=== PATIENT | female | born 1960 | race African-American/Black ===

== ENCOUNTER 2016-06-01 09:30 | Observation (INO) | payer OTHER ==
[2016-06-01 09:56] VITALS: BMI 29.8
[2016-06-01] MEDS ORDERED: SODIUM CHLORIDE 1,000 ML IV ONE (10:11)
[2016-06-01 10:23] LABS: BASOPHIL 0.6 % (0-2.0); EOSINOPHIL 0.6 % (0-4.5); MCH 32.2 pg (25.7-33.7); MEAN CELL VOLUME 94.8 fl (80-96); MEAN PLT VOLUME 7.6 fl (7.5-11.1); NEUTROPHILS 78.3 % (42.8-82.8); PLATELET COUNT 236 K/MM3 (134-434); WHITE BLOOD COUNT 9.8 K/mm3 (4.0-10.0)
--- NOTE | 2016-06-01 10:27 | PDOC ---
[id number] Timing/Duration: other (this am) Associated Symptoms: reports: nausea/vomiting, weakness. denies: chest pain, cough, fever/chills, headaches, shortness of breath <Patricia Miles - Last Filed: 06/01/16 13:07> <Luis Kong - Last Filed: 06/06/16 07:55> - General Chief Complaint: Syncope/Near Syncope Stated Complaint: WEAKNESS Time Seen by Provider: 06/01/16 09:41 Past History - Past Medical History Anemia: No Asthma: No Cancer: No Cardiac Disorders: No CVA: No COPD: No CHF: No Dementia: No Diabetes: No GI Disorders: No Disorders: No HTN: No Hypercholesterolemia: No Liver Disease: No Psychiatric Problems: Yes (DEPRESSION) Seizures: No Thyroid Disease: No - Psycho/Social/Smoking Cessation Hx Suicidal Ideation: Yes (HAS THOUGHT ABOUT IT IN THE PAST ") Smoking History: Current every day smoker Have you smoked in the past 12 months: Yes Number of Cigarettes Smoked Daily: 6 If you are a former smoker, when did you quit?: ABOUT 5 YRS AGO Information on smoking cessation initiated: Yes 'Breaking Loose' booklet given: 06/01/16 Hx Alcohol Use: No Drug/Substance Use Hx: No Substance Use Type: None Hx Substance Use Treatment: No <Patricia Miles - Last Filed: 06/01/16 13:07> <Luis Kong - Last Filed: 06/06/16 07:55> - Past Medical History Allergies/Adverse Reactions: Allergies Allergy/AdvReac Type Severity Reaction Status Date / Time No Known Drug Allergies Allergy Verified 06/01/16 09:42 Home Medications: Ambulatory Orders Aripiprazole [Abilify -] 2 mg PO DAILY 06/25/13 Diazepam [Valium -] 10 mg PO TID 06/25/13 Aspirin [ASA -] 81 mg PO DAILY #30 tab.chew 12/17/15 Atorvastatin Ca [Lipitor] 10 mg PO HS #30 tablet 12/17/15 Primidone [Mysoline -] 250 mg PO BID 06/01/16 Review of Systems - Review of Systems Constitutional: Yes: Weakness. No: Chills, Fever HEENTM: No: Blurred Vision Respiratory: No: Cough, Shortness of Breath Cardiac (ROS): No: Chest Pain ABD/GI: Yes: Nausea. No: Diarrhea, Vomiting : No: Dysuria Musculoskeletal: No: Back Pain, Neck Pain Neurological: Yes: Weakness, Dizziness. No: Headache, Seizure <Patricia Miles - Last Filed: 06/01/16 13:07> *Physical Exam - Vital Signs Last Vital Signs Temp Pulse Resp BP Pulse Ox 98.2 F 84 18 105/76 97 06/01/16 09:43 06/01/16 09:43 06/01/16 09:43 06/01/16 09:43 06/01/16 09:43 - Physical Exam Comments: 06/01/16 10:36 Pt lying on stretcher, alert w/ LUE tremor (chronic per pt) General Appearance: Yes: Appropriately Dressed. No: Apparent Distress HEENT: positive: Normal Voice Neck: positive: Supple Respiratory/Chest: positive: Lungs Clear, Normal Breath Sounds. negative: Respiratory Distress Cardiovascular: positive: Regular Rate, S1, S2 Gastrointestinal/Abdominal: positive: Soft. negative: Tender Extremity: positive: Normal Inspection Integumentary: positive: Dry, Warm Neurologic: positive: Fully Oriented, Alert, Normal Mood/Affect (affect, strength appears intact but unable to peform finger to nose of heel to leary, no drift, declines ambulation at this time). negative: Facial Droop <Patricia Miles Last Filed: 06/01/16 13:07> - Vital Signs Last Vital Signs Temp Pulse Resp BP Pulse Ox 97.9 F 105 H 18 102/61 96 06/02/16 14:00 06/02/16 14:00 06/02/16 14:00 06/02/16 14:00 06/02/16 09:00 <Luis Kong - Last Filed: 06/06/16 07:55> Heart Score/ECG Review - ECG Intrepretation Comment:: 06/01/16 11:14 Twelve-lead EKG was performed and reviewed by me. There is normal sinus rhythm with a normal rate. The axis is normal. The intervals are normal. There are no ST or T wave abnormalities. Impression: Normal twelve-lead EKG <Patricia Miles Last Filed: 06/01/16 13:07> ED Treatment Course - LABORATORY CBC & Chemistry Diagram: 06/01/16 10:00 06/01/16 10:00 <Patricia Miles - Last Filed: 06/01/16 13:07> - LABORATORY CBC & Chemistry Diagram: 06/02/16 05:35 06/02/16 05:35 - ADDITIONAL ORDERS Additional order review: 06/01/16 10:00 RBC 4.11 MCV 94.8 MCHC 34.0 RDW 14.0 MPV 7.6 D Neutrophils % 78.3 D Lymphocytes % 16.0 D Monocytes % 4.5 Eosinophils % 0.6 D Basophils % 0.6 - RADIOLOGY Radiology Studies Ordered: Category Date Time Status CHEST X-RAY PORTABLE* [RAD] Stat Radiology 06/01/16 10:11 Completed - Medications Given in the ED: ED Medications Discontinued Medications Generic Name Dose Route Start Last Admin Trade Name Kathie PRN Reason Stop Dose Admin Aspirin 81 mg 06/02/16 10:00 06/02/16 09:14 Asa - PO 81 mg DAILY JEM Administration Atorvastatin Calcium 10 mg 06/01/16 22:00 06/01/16 21:22 Lipitor - PO 10 mg HS JEM Administration Sodium Chloride 1,000 mls @ 1,000 mls/hr 06/01/16 10:11 06/01/16 10:45 Normal Saline - IV 06/01/16 11:10 1,000 mls/hr .Q1H ONE Administration Primidone 250 mg 06/01/16 22:00 06/01/16 21:22 Mysoline - PO 250 mg BID JEM Administration Primidone 250 mg 06/01/16 22:00 06/01/16 22:43 Mysoline - PO Not Given HS JEM <Luis Kong - Last Filed: 06/06/16 07:55> Medical Decision Making - Medical Decision Making 06/01/16 10:25 56-year-old female, h/o anxiety, depression, tremor, brought in by EMS after witnessed syncope. Patient states when she awoke this morning, felt generally weak and while outdoors waiting for her friend, she became lightheaded and passed out, states bystander caught her and denies hitting head. No seizure activity. Continues to feel weak at this time. Also complaining of nausea, no vomiting, headache, blurred vision, slurred speech or focal weakness at this time. Denies chest pain or shortness of breath. Patient states she's had similar syncopal episodes in the past and that at some point was seen by Dr Godwin of neuro w/ no clear dx. Of note, pt has had multipel ED visits for weakness and was admitted for same 12/12 when pt has also c/o left-sided weakness at that time. Had extensive neuro and cardiology workup with no clear diagnosis. Was found to have B-12 of over 7000 at that time and told to stop also supplements which patient has done see exam Weakness w/ syncope Recurrent Neg w/u in past Stable in ED w/ odd affect and non-focal but unable to perform some components of neuro exam Chest/lungs clear Doubt CVA at this time, unlikely cardiac, possible psych component -ekg -labs - including utox and etoh lvl -CTH -reassess 06/01/16 12:50 Labs unremarkable, +barbituates on utox (pt on primidone for seizures), admits to not taking the rest of her meds for some time for unclear reasons. Continues to complain of feeling generally weak. Case discussed w/ ED attending and decision to admit patient to Obs overnight. Will discuss with PMD 06/01/16 13:[address] Reyna who recommends admitting patient to obs under Dr. Michael Angulo 06/01/16 13:[address] Angulo and patient admitted to his service. Ephraim. requesting Dr. Ponce of neurology to be consulted <Patricia Miles - Last Filed: 06/01/16 13:07> - Medical Decision Making The patient was seen and evaluated in conjunction with DORCAS Freire under my direct supervision, ancillary studies were reviewed. I agree with the plan as outlined by DORCAS Miles . <Luis Kong - Last Filed: 06/06/16 07:55> *DC/Admit/Observation/Transfer - Discharge Dispostion Admit: Yes <Patricia Miles - Last Filed: 06/01/16 13:07> <Luis Kong - Last Filed: 06/06/16 07:55> Diagnosis at time of Disposition: Weakness - Discharge Dispostion Disposition: AGAINST MEDICAL ADVICE Condition at time of disposition: Stable - Referrals
[2016-06-01 10:59] LABS: ALBUMIN 3.4 g/dl (3.4-5.0); ALK PHOS 103 U/L (45-117); ANION GAP 10 (8-16); BILIRUBIN,TOTAL 0.3 mg/dL (0.2-1.0); CALCIUM 8.7 mg/dL (8.5-10.1); CO2 23 mmol/L (21-32); CREATININE 0.9 mg/dL (0.55-1.02); GLUCOSE,RANDOM 105 mg/dL (74-106); SGOT/AST 10 U/L (15-37); SGPT/ALT 15 U/L (12-78); TOT PROT 6.5 g/dl (6.4-8.2)
[2016-06-01 11:01] LABS: TROPONIN I < 0.02 ng/ml (0.00-0.05)
--- NOTE | 2016-06-01 11:14 | EKG ---
Test Reason : Blood Pressure : / mmHG Vent. Rate : 072 BPM Atrial Rate : 072 BPM P-R Int : 140 ms QRS Dur : 084 ms QT Int : 386 ms P-R-T Axes : 058 013 053 degrees QTc Int : 422 ms NORMAL SINUS RHYTHM NORMAL ECG WHEN COMPARED WITH ECG OF 14-DEC-2015 22:21, NO SIGNIFICANT CHANGE WAS FOUND Confirmed by ISRAEL SEN MD ([id number]) on 06/01/2016 11:14:14 AM Referred By: Confirmed By:ISRAEL SEN MD
[2016-06-01 12:12] LABS: URINE APPEARANCE SLCLOUDY; URINE BILIRUBIN NEGATIVE (NEGATIVE); URINE BLOOD NEGATIVE (NEGATIVE); URINE COLOR LTYELLOW; URINE GLUCOSE (UA) NEGATIVE (NEGATIVE); URINE KETONE NEGATIVE (NEGATIVE); URINE NITRITE NEGATIVE (NEGATIVE); URINE PROTEIN NEGATIVE (NEGATIVE); URINE UROBILINOGEN NEGATIVE E.U./dl (0.2-1.0)
[2016-06-01 12:19] LABS: URINE LEUK ESTERASE TRACE (NEGATIVE)
[2016-06-01 12:26] LABS: URINE MUCUS RARE; URINE RBC 1 /hpf (0-3); URINE WBC 4 /hpf (3-5)
[2016-06-01 12:31] LABS: URINE MARIJUANA THC NEGATIVE ng/ml (CUTOFF=50)
--- NOTE | 2016-06-01 17:43 | HP ---
Admitting History and Physical - Primary Care Physician PCP: Yoni Reyna - Admission Chief Complaint: weakness History Source: Medical Record - Past Medical History Psych: Yes: Anxiety, Depression - Past Surgical History Past Surgical History: Yes: Hernia Repair - Smoking History Smoking history: Current every day smoker Have you smoked in the past 12 months: Yes Aproximately how many cigarettes per day: 6 If you are a former smoker, when did you quit?: ABOUT 5 YRS AGO - Alcohol/Substance Use Hx Alcohol Use: No History of Substance Use: reports: None Home Medications - Allergies Allergies/Adverse Reactions: Allergies Allergy/AdvReac Type Severity Reaction Status Date / Time No Known Drug Allergies Allergy Verified 06/01/16 09:42 - Home Medications Home Medications: Ambulatory Orders Aripiprazole [Abilify -] 2 mg PO DAILY 06/25/13 Diazepam [Valium -] 10 mg PO TID 06/25/13 Aspirin [ASA -] 81 mg PO DAILY #30 tab.chew 12/17/15 Atorvastatin Ca [Lipitor] 10 mg PO HS #30 tablet 12/17/15 Primidone [Mysoline -] 250 mg PO BID 06/01/16 Family Disease History - Family Disease History Family Disease History: Diabetes: Mother, Heart Disease: Father Review of Systems - Review of Systems Constitutional: denies: Chills, Fever Cardiovascular: denies: Chest Pain Respiratory: denies: SOB Gastrointestinal: denies: Abdominal Pain Physical Examination Vital Signs: Vital Signs Temperature 98.2 F 06/01/16 09:43 Pulse Rate 86 06/01/16 15:04 Respiratory Rate 20 06/01/16 15:04 Blood Pressure 100/67 06/01/16 15:04 O2 Sat by Pulse Oximetry (%) 99 06/01/16 15:04 Findings/Remarks: ANXIOUS TO GO HOME Constitutional: Yes: Calm Cardiovascular: Yes: Regular Rate and Rhythm, S1, S2 Respiratory: Yes: CTA Bilaterally Gastrointestinal: Yes: Normal Bowel Sounds, Soft Edema: No Imaging - Results Chest X-ray: Report Reviewed Cat Scan: Report Reviewed EKG: Report Reviewed Problem List - Problems (1) Mood disorder Code(s): F39 - UNSPECIFIED MOOD [AFFECTIVE] DISORDER (2) Weakness of left side of body Code(s): M62.81 - MUSCLE WEAKNESS (GENERALIZED) (3) Syncope Code(s): R55 - SYNCOPE AND COLLAPSE Assessment/Plan 56-year-old female, h/o anxiety, depression, tremor, brought in by EMS after witnessed syncope. Patient states when she awoke this morning, felt generally weak and while outdoors waiting for her friend, she became lightheaded and passed out, states bystander caught her and denies hitting head. No seizure activity. Continues to feel weak at this time. Also complaining of nausea, no vomiting, headache, blurred vision, slurred speech or focal weakness at this time. Denies chest pain or shortness of breath. Patient states she's had similar syncopal episodes in the past and that at some point was seen by Dr Godwin of neuro w/ no clear dx. Of note, pt has had multipel ED visits for weakness and was admitted for same 12/12 when pt has also c/o left-sided weakness at that time. Had extensive neuro and cardiology workup with no clear diagnosis. Was found to have B-12 of over 7000 at that time and told to stop also supplements which patient has done (1) Mood disorder Code(s): F39 - UNSPECIFIED MOOD [AFFECTIVE] DISORDER (2) Weakness of left side of body Code(s): M62.81 - MUSCLE WEAKNESS (GENERALIZED) pt (3) Syncope Code(s): R55 - SYNCOPE AND COLLAPSE cardio & neuro consulted trop neg -> f/u ctb neg [employer] FM
[2016-06-01 19:28] LABS: TROPONIN I < 0.02 ng/ml (0.00-0.05)
--- NOTE | 2016-06-01 21:28 | CONSULT ---
Consult - text type - Consultation Consultation Note: NEUROLOGY CONSULTATION is greatly appreciated: This 56 yo sep woman lives alone. H/O Chol, anxiety and depression on atorvastatin, abilify (2 mg), Valium (10 TID ) but hasn't taken Valium or abilify "for about a month" since her psychiatrist "doesn't take her insurance and she "is looking for a new one." On Abiilfy x 3-4 years and developed tremors about 2 years ago for which she takes Primidone 250 mg BID. Admitted here in November after 2 syncopal episodes in her apartment. W/u apparently unrevealing. Now admitted after fainting in the street. Warned by nausea, lightheadedness and spinning preceding LOC. No diaphoresis, incontinence or seizure noted. CT of head (reviewed): Normal BP 90/60 JOHN: No evidence of external head trauma. Cor: Reg. No bruits. Small abrasions both knees. NEURO: MS/speech: Normal CN II-XII: Masked facies. Otherwise normal Motor: Bradykinetic. + Rhythmic rest tremor (R>L) at 4-5 cps. Present on sustention, resolves on FTN. Mild cogwheeling increased with reinforcement. Normal strength and reflexes. Toes downgoing. Coord: No FTN dystaxia Sensory: Normal Gait: Sl shuffle. IMP: 1. Syncope- probably secondary to hypotension +/- orthostatic changes. 2. Extrpyramidal (Parkinsonian) tremor. Probably induced by Abilify but now, apparently, persisting off neuroleptic Rx (Parkinson's Disease?). SUGGEST: Check orthostatic BP's. Check B12, TSH, RPR Reduce primidone to 250 mg QHS. Observe for signs of Bensodiazepine withdrawal but try to avoid resuming diazepam Do not resume Abilify. If depression/ anxiety remains a problem, try citalopram 20 mg PO QD. Psychiatry consultation. No L-Dopa until hypotension is understood and rectified. Thank you very much, Papi Ponce MD
[2016-06-01] MEDS ORDERED: PRIMIDONE 250 MG TABLET PO SCH ×2 (22:00)
[2016-06-01] MEDS ORDERED: ATORVASTATIN CA 10 MG TABLET (FP) PO SCH (22:00)
[2016-06-02 00:51] LABS: TROPONIN I < 0.02 ng/ml (0.00-0.05)
[2016-06-02 07:19] LABS: MCH 31.4 pg (25.7-33.7); MCHC 32.9 g/dl (32.0-36.0); MEAN CELL VOLUME 95.4 fl (80-96); MEAN PLT VOLUME 7.9 fl (7.5-11.1); NEUTROPHILS 65.1 % (42.8-82.8); PLATELET COUNT 221 K/MM3 (134-434); RDW 13.9 % (11.6-15.6); WHITE BLOOD COUNT 8.7 K/mm3 (4.0-10.0)
[2016-06-02 07:20] LABS: BASOPHIL 0.6 % (0-2.0); EOSINOPHIL 2.3 % (0-4.5)
[2016-06-02 07:49] LABS: ALBUMIN 3.1 g/dl (3.4-5.0); CALCIUM 8.6 mg/dL (8.5-10.1); CREATININE 0.9 mg/dL (0.55-1.02); GLUCOSE,RANDOM 87 mg/dL (74-106); SGOT/AST 6 U/L (15-37); SGPT/ALT 15 U/L (12-78)
[2016-06-02 07:59] LABS: ALK PHOS 94 U/L (45-117); ANION GAP 10 (8-16); BILIRUBIN,TOTAL 0.3 mg/dL (0.2-1.0); CO2 22 mmol/L (21-32); THYROID STIMULATING HORMONE 1.27 uIU/ml (0.358-3.74); TOT PROT 6.1 g/dl (6.4-8.2)
[2016-06-02] MEDS ORDERED: ASPIRIN 81 MG CHEWABLE TABLETS PO SCH (10:00)
[2016-06-02] MEDS ORDERED: ARIPiprazole 2 MG TABLET PO SCH (10:00)
--- NOTE | 2016-06-02 11:51 | CONSULT ---
Consult - text type - Consultation Consultation Note: ASKED BY DR. Medrano TO SEE PT 56 YO FEMALE 06/01/16 SYNCOPE. PT SEEN, EXAMINED. ECG'S REVIEWED. WORKING DX; ORTHOSTATIC HYPOTENSION /INTRA VASCULAR VOLUME DEPLETION NO EVIDENCE TO SUGGEST ACUTE CARDIAC EVENT/ARRHYTHMIA. REC; OK TO DISCONTINUE TELEMETRY OBTAIN PRIOR RECORDS / CARDIAC STUDIES NOT PRESENTLY AVAIALBLE. EVENT RECORDER/IMPLANTABLE LOOP RECORDER OUT PATIENT. DIRECTED BY MEDICINE/NEURO THANKS. FULL NOTE DICTATED.
[2016-06-02 14:15] VITALS: BP 102/61; PULSE 105; TEMP 97.9
--- NOTE | 2016-06-02 16:25 | DS ---
Physical Examination Vital Signs: Vital Signs Temperature 97.9 F 06/02/16 14:00 Pulse Rate 105 H 06/02/16 14:00 Respiratory Rate 18 06/02/16 14:00 Blood Pressure 102/61 06/02/16 14:00 O2 Sat by Pulse Oximetry (%) 96 06/02/16 09:00 Findings/Remarks: SIGNED OUT AMA Labs: CBC, BMP 06/02/16 05:35 06/02/16 05:35 Discharge Summary Reason For Visit: WEAKNESS Current Active Problems Syncope (Acute) Weakness (Acute) Condition: Stable - Instructions Referrals: Yoni Reyna MD [Primary Care Provider] - Disposition: AGAINST MEDICAL ADVICE - Home Medications Comprehensive Discharge Medication List: Ambulatory Orders Aripiprazole [Abilify -] 2 mg PO DAILY 06/25/13 Diazepam [Valium -] 10 mg PO TID 06/25/13 Aspirin [ASA -] 81 mg PO DAILY #30 tab.chew 12/17/15 Atorvastatin Ca [Lipitor] 10 mg PO HS #30 tablet 12/17/15 Primidone [Mysoline -] 250 mg PO BID 06/01/16
--- NOTE | 2016-06-03 14:14 | CONS ---
DATE OF CONSULTATION: 06/02/2016 REQUESTING PHYSICIAN: Stephanie Angulo MD, and Álvaro Villegas MD PATIENT PROFILE: The patient is an 56-year-old female admitted on June 01, 2016, because of syncope. The patient has no known heart disease. No history of a myocardial infarction, angina, congestive heart failure, or rhythm disturbance. She does have a prior history of syncope and reportedly had undergone noninvasive cardiac studies. The details are not presently available. She was in her usual state of health until the day of admission, when she was standing in [facility] and felt dizzy, lightheaded, and subsequently lost consciousness. She was brought to the emergency room where she was found to have normal vital signs with a blood pressure 90-100 systolic, and admitted for further evaluation therapy. There is a possible history of Parkinson's disease. She is thought to have tremors in the past and has a long history of anxiety and depression. She has known hyperlipidemia. There is no history of diabetes or hypertension. PRESENT MEDICATIONS: Include Lipitor 10 mg per day, primidone 250 mg, and aspirin 81 mg per day. PRIOR SURGICAL HISTORY: Herniorrhaphy. PRIOR MEDICAL HISTORY: Anxiety, depression, tremor, hyperlipidemia. SOCIAL HISTORY: She lives alone at home. 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 She continues to smoke 1 pack of cigarettes a day up until the present time. There is no history of diabetes. There is no history of alcohol abuse. FAMILY HISTORY: Mother: Diabetes. Father: Heart disease. REVIEW OF SYSTEMS: General: No fever or chills. Gastrointestinal: No melena, no vomiting. Neurological: No focal deficit. PHYSICAL EXAMINATION: General: The patient appears well, in no distress, lying flat. Vital signs: The heart rate is 68 per minute, the temperature afebrile, respiratory is 18 per minute, the blood pressure is 93-126 supine and standing upright it is 108/68. Neck: There is no neck vein distension. There is no carotid bruit. Lungs: The lung simms are clear. Heart: The heart sounds are normal. No murmur, no gallop is audible. Abdomen: Is soft and nontender. There are active bowel sounds. Extremities: There is no peripheral edema. Neurological: There is no focal neurological deficit. DATA BASE: The electrocardiogram demonstrates sinus rhythm, normal tracing. Review of telemetry monitoring failed to demonstrate any rhythm disturbance. LABORATORY STUDIES: Of note include normal electrolytes except for a chloride of 112, BUN 17, creatinine 0.9. Troponin level is 0.02 on 3 determinations The glucose is 105. The white blood cell count is 8.7, hematocrit 38%, platelet count is 221,000. Urinalysis is negative for protein and glucose. Toxicology screen is positive for barbiturates. IMPRESSION: The working diagnosis is syncope secondary to orthostatic hypotension with concerns for intravascular volume depletion as a contributing factor. There is no evidence to date to suggest a rhythm disturbance to explain the patients symptom. There is no evidence of acute myocardial ischemia or infarction. Patient is presently hemodynamically stable. I RECOMMENDED THE FOLLOWIN. It is safe to discontinue telemetry. 2. Obtain prior records not presently available, specifically previous noninvasive cardiac studies. 3. Event recorder/implantable loop recorder as an outpatient dictated by patients clinical course and workup in therapy as directed by Medicine and Neurology. Thank you for allowing me to take part in the care of this pleasant patient. TASHIA WHITFIELD M.D. [id number]
== END 2016-06-02 14:21 | disposition left against medical advice (07) ==
LOC: JER 09:30 → JERBED 13:06 → J4W 15:52
PROVIDERS: ADMIT Family Medicine; ATTEND Family Medicine
DX: R55 Syncope and collapse (principal); M62.81 Muscle weakness (generalized); F39 Unspecified mood [affective] disorder; Z87.891 Personal history of nicotine dependence
CPT/HCPCS: 36415; 70450-TC; 71010-TC; 80053; 80307; 81003; 81015; 82550; 82607; 84443; 84484; 85025; 86593; 93005; 93010; 97116-GP; 97161-GP; 99285-25; G0378

== ENCOUNTER 2016-10-16 11:25 | Emergency (ER) | payer OTHER ==
[2016-10-16 12:02] VITALS: BMI 71.1
--- NOTE | 2016-10-16 12:07 | PDOC ---
Attending Attestation - Resident Resident Name: Santos Simmons - ED Attending Attestation I have performed the following: I have examined & evaluated the patient, The case was reviewed & discussed with the resident, I agree w/resident's findings & plan, Exceptions are as noted - HPI HPI: 56 yo F history anxiety, depression presents with multiple complaints. She states she has been having substernal chest pain, poor appetite, poor PO intake. Denies abdominal pain, vomiting; however, she has been nauseous. No fever, no recent illness. Denies urinary symptoms. - Physicial Exam PE: GENERAL: Awake, alert, and fully oriented, in no acute distress HEAD: No signs of trauma EYES: PERRLA, EOMI, sclera anicteric, conjunctiva clear ENT: Auricles normal inspection, hearing grossly normal, nares patent, oropharynx clear without exudates. Dry mucosa NECK: Normal ROM, supple, no lymphadenopathy, JVD, or masses LUNGS: Breath sounds equal, clear to auscultation bilaterally. No wheezes, and no crackles HEART: Regular rate and rhythm with occasional extrasystole, normal S1 and S2, no murmurs, rubs or gallops ABDOMEN: Soft, mild LLQ tenderness, normoactive bowel sounds. No guarding, no rebound. No masses EXTREMITIES: Normal range of motion, no edema. No clubbing or cyanosis. No cords, erythema, or tenderness NEUROLOGICAL: Cranial nerves II through XII grossly intact. Normal speech, normal gait SKIN: Warm, Dry, normal turgor, no rashes or lesions noted. - Medical Decision Making Patient is a somewhat vague historian presenting with multiple complaints. However, it appears that her poor appetite and palpitations, as well as the chest pain, are what brought her to the ED today. She has had symptoms since yesterday. Will obtain labs, EKG, CXR and reassess. Will reassess abdomen, if tenderness persists, she may require CT to evaluate the LLQ. Heart Score/ECG Review - History History: Slightly suspicious - Electrocardiogram EKG: Normal - Age Age: 45-65 - Risk Factors Risk Factors Heart Score: Yes Hx Hypercholesterolemia Based on the list above the patient has:: 1-2 risk factors - Troponin Troponin: </= normal limit - Score Heart Score - Total: 2
[2016-10-16] MEDS ORDERED: ASPIRIN 81 MG CHEWABLE TABLETS PO ONE (12:23)
[2016-10-16] MEDS ORDERED: SODIUM CHLORIDE 0.9% 1000 ML INFUS.BAG IV ONE ×2 (12:24→16:01)
[2016-10-16] MEDS ORDERED: ASPIRIN 81 MG CHEWABLE TABLETS ONE (12:27)
--- NOTE | 2016-10-16 12:30 | PDOC ---
History of Present Illness - General Chief Complaint: Diarrhea Stated Complaint: ANXIETY Time Seen by Provider: 10/16/16 11:42 History Source: Patient Exam Limitations: No Limitations - History of Present Illness Initial Comments: 10/16/16 12:25 The patient is a 56F with a PMH of anxiety, depression, and tremors who presents to the ED with multiple complaints. The patient states that since yesterday she has felt nauseous, lost her appetite, is experiencing chest pressure, has diarrhea, and tremors. She states that the onset was gradual and it has been constant since it's onset. It was not associated with exertion but she did feel like she was going to pass out. Her chest pressure is located retrosternally, radiates only around her sternum, and is not associated with diaphoresis. She did not take her meds today, she has no sick contacts, no recent travel, and has not eaten any weird foods. PSH: Abdominal surgery 1 year ago on uterus for polyps Allergies: NKDA Social: 4 cigs/day, does not drink or use recreational drugs Past History - Past Medical History Allergies/Adverse Reactions: Allergies Allergy/AdvReac Type Severity Reaction Status Date / Time No Known Drug Allergies Allergy Verified 10/16/16 11:45 Home Medications: Ambulatory Orders Aripiprazole [Abilify -] 2 mg PO DAILY 06/25/13 Diazepam [Valium -] 10 mg PO TID 06/25/13 Aspirin [ASA -] 81 mg PO DAILY #30 tab.chew 12/17/15 Atorvastatin Ca [Lipitor] 10 mg PO HS #30 tablet 12/17/15 Primidone [Mysoline -] 250 mg PO BID 06/01/16 Sertraline HCl [Zoloft] 25 mg PO ONCE 10/16/16 Anemia: No Asthma: No Cancer: No Cardiac Disorders: No CVA: No COPD: No CHF: No Dementia: No Diabetes: No GI Disorders: No Disorders: No HTN: No Hypercholesterolemia: Yes Liver Disease: No Psychiatric Problems: Yes (DEPRESSION) Seizures: No Thyroid Disease: No - Psycho/Social/Smoking Cessation Hx Suicidal Ideation: No Smoking History: Current some day smoker Have you smoked in the past 12 months: Yes Number of Cigarettes Smoked Daily: 6 If you are a former smoker, when did you quit?: ABOUT 5 YRS AGO Information on smoking cessation initiated: No 'Breaking Loose' booklet given: 06/01/16 Hx Alcohol Use: No Drug/Substance Use Hx: No Substance Use Type: None Hx Substance Use Treatment: No Review of Systems - Review of Systems Able to Perform ROS?: Yes Is the patient limited Gabonese proficient: No Constitutional: Yes: Chills, Loss of Appetite, Weakness. No: Fever Respiratory: Yes: Shortness of Breath. No: Cough Cardiac (ROS): Yes: Chest Pain, Lightheadedness ABD/GI: Yes: Diarrhea, Nausea. No: Vomiting : No: Dysuria, Discharge Neurological: No: Headache *Physical Exam - Vital Signs Last Vital Signs Temp Pulse Resp BP Pulse Ox 98.2 F 62 22 105/69 96 10/16/16 11:47 10/16/16 11:47 10/16/16 11:47 10/16/16 11:47 10/16/16 11:47 - Physical Exam General Appearance: Yes: Nourished, Mild Distress HEENT: positive: Normal Voice. negative: Muffled/Hoarse voice Respiratory/Chest: positive: Lungs Clear, Normal Breath Sounds. negative: Chest Tender, Respiratory Distress Cardiovascular: positive: S1, S2, Irregular. negative: Regular Rate Gastrointestinal/Abdominal: positive: Flat, Soft. negative: Tender Integumentary: positive: Dry, Warm. negative: Swelling Neurologic: positive: Fully Oriented, Alert Heart Score/ECG Review - History History: Slightly suspicious - Electrocardiogram EKG: Normal - Age Age: 45-65 - Risk Factors Risk Factors Heart Score: Yes Hx Hypercholesterolemia Based on the list above the patient has:: 1-2 risk factors - ECG Impressions Normal ECG: Yes ED Treatment Course - LABORATORY CBC & Chemistry Diagram: 10/16/16 12:55 10/16/16 17:33 - RADIOLOGY Radiology Studies Ordered: Category Date Time Status CHEST PA & LAT [RAD] Stat Radiology 10/16/16 12:23 Ordered Medical Decision Making - Medical Decision Making 10/16/16 12:33 Patient is a 56F with a hx of anxiety and depression who presents with CP, nausea, and diarrhea x 1 day. I am suspicious for ACS, arrhythmia, or GI pathology. I have ordered a chest pain set and will give fluids for the patient. 10/16/16 14:53 CXR and trop are negative. 10/16/16 15:10 Labs have to be repeated x2 d/t hemolysis. 10/16/16 18:58 Repeat labs are WNL. Patient is OK with discharge. *DC/Admit/Observation/Transfer Diagnosis at time of Disposition: Nausea - Discharge Dispostion Disposition: HOME Condition at time of disposition: Improved Admit: No - Patient Instructions Printed Discharge Instructions: DI for Nausea -- Adult - Attestations Physician Attestion: 10/16/16 12:33 I, Dr. Santos Simmons, attest that this document has been prepared under my direction and personally reviewed by me in its entirety. I further attest, that it accurately reflects all work, treatment, procedures and medical decision -making performed by me. 10/16/16 18:59
[2016-10-16 13:02] LABS: BASOPHIL 0.9 % (0-2.0); EOSINOPHIL 0.8 % (0-4.5); MCH 30.8 pg (25.7-33.7); MEAN CELL VOLUME 93.3 fl (80-96); MEAN PLT VOLUME 7.8 fl (7.5-11.1); NEUTROPHILS 75.9 % (42.8-82.8); PLATELET COUNT 275 K/MM3 (134-434); RDW 15.2 % (11.6-15.6); WHITE BLOOD COUNT 11.9 K/mm3 (4.0-10.0)
[2016-10-16 13:18] LABS: INR 1.23 (0.82-1.09); PROTHROMBIN TIME (PATIENT) 13.6 SEC (9.98-11.88)
[2016-10-16 14:47] LABS: ANION GAP 29 (8-16); TROPONIN I 0.03 ng/ml (0.00-0.05)
[2016-10-16 15:17] VITALS: BP 108/69; PULSE 60; TEMP 98.1
[2016-10-16] MEDS ORDERED: ONDANSETRON 4 MG/2 ML VIAL IVPUSH ONE (16:41)
[2016-10-16] MEDS ORDERED: ONDANSETRON 4 MG/2 ML VIAL ONE (17:44)
[2016-10-16 18:29] LABS: ALBUMIN 3.1 g/dl (3.4-5.0); ANION GAP 8 (8-16); BILIRUBIN,TOTAL 0.5 mg/dL (0.2-1.0); CALCIUM 8.6 mg/dL (8.5-10.1); CO2 24 mmol/L (21-32); CREATININE 0.7 mg/dL (0.55-1.02); GLUCOSE,RANDOM 78 mg/dL (74-106); SGOT/AST 41 U/L (15-37); SGPT/ALT 86 U/L (12-78); TOT PROT 6.1 g/dl (6.4-8.2)
[2016-10-16 18:30] LABS: ALK PHOS 126 U/L (45-117)
--- NOTE | 2016-10-19 10:44 | EKG ---
Test Reason : Blood Pressure : / mmHG Vent. Rate : 068 BPM Atrial Rate : 068 BPM P-R Int : 150 ms QRS Dur : 076 ms QT Int : 406 ms P-R-T Axes : 045 014 048 degrees QTc Int : 431 ms NORMAL SINUS RHYTHM POSSIBLE LEFT ATRIAL ENLARGEMENT LOW VOLTAGE QRS BORDERLINE ECG WHEN COMPARED WITH ECG OF 01-JUN-2016 09:48, NO SIGNIFICANT CHANGE WAS FOUND Confirmed by KIMBERLY ORTEGA, MARIAM ([id number]) on 10/19/2016 10:43:26 AM Referred By: Confirmed By:MARIAM HARRIS MD
== END 2016-10-16 19:27 | disposition home or self-care (01) ==
LOC: JER 11:25
PROC: 3E033GC Introduction of Other Therapeutic Substance into Peripheral Vein, Percutaneous Approach (ICD-10-PCS; principal; 2016-10-16)
PROC: 3E0337Z Introduction of Electrolytic and Water Balance Substance into Peripheral Vein, Percutaneous Approach (ICD-10-PCS; 2016-10-16)
DX: R11.0 Nausea (principal); E78.00 Pure hypercholesterolemia, unspecified; F17.210 Nicotine dependence, cigarettes, uncomplicated; F32.9 Major depressive disorder, single episode, unspecified
CPT/HCPCS: 36415; 71010-TC; 80053; 82550; 83735; 84484; 85025; 85610; 93005; 93010; 96361; 96374; 99283-25

== ENCOUNTER 2020-03-25 08:43 | Emergency (ER) | payer OTHER ==
[2020-03-25 08:57] VITALS: BP 116/74; PULSE 84; BMI 29.0
[2020-03-25] MEDS ORDERED: ACETAMINOPHEN 325 MG TABLET (FP) PO ONE (09:25)
[2020-03-25] MEDS ORDERED: ACETAMINOPHEN 325 MG TABLET (FP) ONE ×2 (09:41→09:50)
== END 2020-03-25 11:37 | disposition home or self-care (01) ==
LOC: JER 08:43
DX: S52.602A Unspecified fracture of lower end of left ulna, initial encounter for closed fracture (principal)
CPT/HCPCS: 73110-TC-LT-FY; 73130-TC-LT-FY; 99283-25

== ENCOUNTER 2020-06-10 16:16 | Observation (INO) | payer OTHER ==
[2020-06-10 16:36] VITALS: BMI 32.3
[2020-06-10] MEDS: SODIUM CHLORIDE 1,000 ML IV STA ×2 (18:10→18:44)
[2020-06-10 19:51] LABS: BASO % 0.4 % (0-2.0); EOS % 0.4 % (0-4.5); HEMOGLOBIN 14.9 GM/dL (10.7-15.3); LYMPH % 6.2 % (8-40); MCH 33.1 pg (25.7-33.7); MCHC 33.1 g/dl (32.0-36.0); MEAN CELL VOLUME 99.8 fl (80-96); MEAN PLT VOLUME 8.6 fl (7.5-11.1); MONO % 5.4 % (3.8-10.2); NEUT % 87.6 % (42.8-82.8); PLATELET COUNT 268 K/MM3 (134-434); RBC 4.51 M/mm3 (3.60-5.2); RDW 14.6 % (11.6-15.6); WHITE BLOOD COUNT 21.6 K/mm3 (4.0-10.0)
[2020-06-10 20:18] LABS: CHLORIDE 107 mmol/L (98-107); POTASSIUM 5.5 mmol/L (3.5-5.1); SODIUM 138 mmol/L (136-145)
[2020-06-10 20:23] LABS: ALBUMIN 3.5 g/dl (3.4-5.0); ANION GAP 4 MMOL/L (8-16); BLOOD UREA NITROGEN 17.6 mg/dL (7-18); CALCIUM 9.6 mg/dL (8.5-10.1); CO2 27 mmol/L (21-32); MAGNESIUM 2.3 mg/dL (1.8-2.4)
[2020-06-10 20:24] LABS: GLUCOSE,RANDOM 70 mg/dL (74-106)
[2020-06-10 20:26] LABS: SGOT/AST 54 U/L (15-37); SGPT/ALT 42 U/L (13-61)
[2020-06-10 20:27] LABS: CREATININE 1.1 mg/dL (0.55-1.3)
[2020-06-10 20:28] LABS: BILIRUBIN,TOTAL 0.4 mg/dL (0.2-1); TOT PROT 7.3 g/dl (6.4-8.2)
[2020-06-10 20:29] LABS: ALK PHOS 151 U/L (45-117)
[2020-06-10 22:56] LABS: ANISOCYTOSIS 2+; MACROCYTOSIS 2+; OVALOCYTE 1+; PLATELET ESTIMATE NORMAL; TARGET CELLS 1+
[2020-06-11] MEDS ORDERED: ACETAMINOPHEN 325 MG TABLET (FP) PO PRN (07:48)
[2020-06-11 09:00] LABS: BASO % 0.9 % (0-2.0); EOS % 2.9 % (0-4.5); HEMOGLOBIN 13.8 GM/dL (10.7-15.3); LYMPH % 26.1 % (8-40); MCH 33.8 pg (25.7-33.7); MCHC 34.4 g/dl (32.0-36.0); MEAN CELL VOLUME 98.1 fl (80-96); MEAN PLT VOLUME 8.2 fl (7.5-11.1); MONO % 8.6 % (3.8-10.2); NEUT % 61.5 % (42.8-82.8); PLATELET COUNT 241 K/MM3 (134-434); RBC 4.07 M/mm3 (3.60-5.2); RDW 14.4 % (11.6-15.6)
[2020-06-11 09:15] LABS: MAGNESIUM 2.1 mg/dL (1.8-2.4)
[2020-06-11 09:19] LABS: CHOLESTEROL 168 mg/dL (50-200)
[2020-06-11 09:20] LABS: LDL CHOLESTEROL (ONLY SJRH) 89 mg/dL (5-100); TRIGLYCERIDES 101 mg/dL (0-150)
[2020-06-11 09:23] LABS: HDL CHOLESTEROL 51 mg/dL (40-60)
[2020-06-11] MEDS ORDERED: SODIUM CHLORIDE 1,000 ML IV SCH (17:30)
[2020-06-11] MEDS ORDERED: PT OWN MED DRAWER 7, Y5N ONE (21:33)
[2020-06-11] MEDS ORDERED: ATORVASTATIN CA 10 MG TABLET (FP) PO SCH (22:00)
[2020-06-11] MEDS: PRIMIDONE 250 MG TABLET PO SCH (22:04)
[2020-06-12 09:02] LABS: BASO % 0.6 % (0-2.0); EOS % 2.9 % (0-4.5); HEMATOCRIT 39.8 % (32.4-45.2); HEMOGLOBIN 13.4 GM/dL (10.7-15.3); LYMPH % 22.9 % (8-40); MCH 33.1 pg (25.7-33.7); MCHC 33.8 g/dl (32.0-36.0); MEAN CELL VOLUME 98.2 fl (80-96); MEAN PLT VOLUME 8.1 fl (7.5-11.1); MONO % 5.5 % (3.8-10.2); NEUT % 68.1 % (42.8-82.8); PLATELET COUNT 229 K/MM3 (134-434); RBC 4.05 M/mm3 (3.60-5.2); RDW 13.9 % (11.6-15.6); WHITE BLOOD COUNT 11.1 K/mm3 (4.0-10.0)
[2020-06-12] MEDS ORDERED: PT OWN MED DRAWER 7, Y5N ONE (09:09)
[2020-06-12 09:20] LABS: POTASSIUM 4.1 mmol/L (3.5-5.1)
[2020-06-12 09:31] LABS: CALCIUM 8.9 mg/dL (8.5-10.1)
[2020-06-12 09:32] LABS: ALBUMIN 3.1 g/dl (3.4-5.0); BLOOD UREA NITROGEN 16.1 mg/dL (7-18)
[2020-06-12 09:33] LABS: EPI CELLS 6 /uL (0-25.1); HYALINE CASTS 3 /uL (0-3.1); URINE APPEARANCE CLEAR; URINE BACTERIA >9,000 /uL (0-1359); URINE BILIRUBIN NEGATIVE (NEGATIVE); URINE COLOR YELLOW; URINE GLUCOSE (UA) NEGATIVE (NEGATIVE); URINE KETONE NEGATIVE (NEGATIVE); URINE LEUK ESTERASE NEGATIVE (NEGATIVE); URINE NITRITE POSITIVE (NEGATIVE); URINE PROTEIN NEGATIVE (NEGATIVE); URINE RBC 6 /uL (0-23.9); URINE UROBILINOGEN 0.2 mg/dL (0.2-1.0)
[2020-06-12 09:33] LABS: BILIRUBIN,TOTAL 0.4 mg/dL (0.2-1); TOT PROT 6.1 g/dl (6.4-8.2)
[2020-06-12 09:35] LABS: CREATININE 0.9 mg/dL (0.55-1.3)
[2020-06-12] MEDS: PRIMIDONE 250 MG TABLET PO SCH (09:40)
[2020-06-12] MEDS: ARIPiprazole 2 MG TABLET PO SCH ×2 (09:40→09:51)
[2020-06-12] MEDS: SERTRALINE HCL 25 MG TABLET (FP) PO SCH ×2 (09:40→09:50)
[2020-06-12] MEDS ORDERED: ASPIRIN 81 MG CHEWABLE TABLETS PO SCH (10:00)
[2020-06-12] MEDS ORDERED: CEFTRIAXONE 1 GM in DEXTROSE 5%-WATER - 50 ML IVPB ONE (10:30)
[2020-06-12 10:59] VITALS: BP 109/71; PULSE 74; TEMP 98.7
[2020-06-12] MEDS ORDERED: DEXTROSE 5%-WATER - 50 ML IVPB ONE (11:44)
[2020-06-12] MEDS ORDERED: cefTRIAXone SODIUM 1 GM VIAL ONE (11:44)
[2020-06-12 17:12] LABS: URINE WBC 121.2 /uL (0-25.8)
== END 2020-06-12 14:33 | disposition home or self-care (01) ==
LOC: JER 16:16 → JERBED 17:50 → INTOOBSV 17:50 → UNDOADMOB 17:50 → JERBED 22:58 → J4S 06-11 02:52 → JERBED 06-11 02:52
PROVIDERS: ADMIT Internal Medicine; ATTEND Internal Medicine
PROC: 3E03329 Introduction of Other Anti-infective into Peripheral Vein, Percutaneous Approach (ICD-10-PCS; principal; 2020-06-10)
PROC: 3E0337Z Introduction of Electrolytic and Water Balance Substance into Peripheral Vein, Percutaneous Approach (ICD-10-PCS; 2020-06-10)
DX: R55 Syncope and collapse (principal); F41.8 Other specified anxiety disorders; F32.9 Major depressive disorder, single episode, unspecified; Z20.822 Contact with and (suspected) exposure to COVID-19; Z29.9 Encounter for prophylactic measures, unspecified; G47.00 Insomnia, unspecified; R42 Dizziness and giddiness; F39 Unspecified mood [affective] disorder; R53.1 Weakness; E66.8 Other obesity; Z68.32 Body mass index [BMI] 32.0-32.9, adult; Z87.891 Personal history of nicotine dependence
CPT/HCPCS: 36415; 70450-TC; 71045-TC-FY; 72125-TC; 80053; 80061; 81003; 82550; 82553; 82962; 83721; 83735; 84484; 85025; 85027; 87086; 87186; 93005; 93010; 93880-TC; 96361; 96365; 99285-25; C9803; G0378; U0003

== ENCOUNTER 2022-03-27 12:17 | Observation (INO) | payer OTHER ==
[2022-03-27 12:51] VITALS: RESP 18; BMI 32.3
[2022-03-27] MEDS ORDERED: ACETAMINOPHEN 1000 MG/100 ML BAG IVPB ONE (13:08)
[2022-03-27 16:16] LABS: BASO % 0.5 % (0-2.0); HEMATOCRIT 40.3 % (32.4-45.2); HEMOGLOBIN 12.7 GM/dL (10.7-15.3); LYMPH % 18.4 % (8-40); MCH 30.5 pg (25.7-33.7); MCHC 31.6 g/dl (32.0-36.0); MEAN CELL VOLUME 96.7 fl (80-96); MEAN PLT VOLUME 7.7 fl (7.5-11.1); NEUT % 73.1 % (42.8-82.8); PLATELET COUNT 269 10^3/uL (134-434); RBC 4.16 M/mm3 (3.60-5.2); RDW 14.1 % (11.6-15.6); WHITE BLOOD COUNT 11.4 K/mm3 (4.0-10.0)
[2022-03-27 16:27] LABS: ACTIVATED PTT 34.1 SECONDS (25.2-36.5); INR 1.14 (0.83-1.09); PROTHROMBIN TIME (PATIENT) 13.1 SEC (9.7-13.0)
[2022-03-27 16:33] LABS: CALCIUM 9.2 mg/dL (8.5-10.1)
[2022-03-27 16:34] LABS: ALBUMIN 3.5 g/dl (3.4-5.0); BLOOD UREA NITROGEN 19.3 mg/dL (7-18); MAGNESIUM 2.2 mg/dL (1.8-2.4)
[2022-03-27 16:37] LABS: CREATININE 0.9 mg/dL (0.55-1.3)
[2022-03-27 16:38] LABS: BILIRUBIN,TOTAL 0.6 mg/dL (0.2-1); TOT PROT 6.7 g/dl (6.4-8.2)
[2022-03-27] MEDS ORDERED: ACETAMINOPHEN INJECTION 100 ML IVPB ONE (16:41)
[2022-03-27 16:42] LABS: N-TERMINAL BNP 44.9 pg/ml (5-125)
[2022-03-27] MEDS ORDERED: ACETAMINOPHEN 325 MG TABLET (FP) PO PRN (22:30)
[2022-03-27] MEDS ORDERED: ASPIRIN 81 MG CHEWABLE TABLETS PO SCH (22:33)
[2022-03-28 07:21] LABS: BASO % 0.7 % (0-2.0); EOS % 5.3 % (0-4.5); HEMATOCRIT 39.8 % (32.4-45.2); HEMOGLOBIN 12.8 GM/dL (10.7-15.3); LYMPH % 28.2 % (8-40); MCH 31.4 pg (25.7-33.7); MCHC 32.3 g/dl (32.0-36.0); MEAN CELL VOLUME 97.4 fl (80-96); MEAN PLT VOLUME 7.9 fl (7.5-11.1); MONO % 9.4 % (3.8-10.2); NEUT % 56.4 % (42.8-82.8); PLATELET COUNT 273 10^3/uL (134-434); RBC 4.09 M/mm3 (3.60-5.2); RDW 14.4 % (11.6-15.6)
[2022-03-28 07:31] VITALS: BP 114/70; PULSE 77; TEMP 98.9
[2022-03-28 07:46] LABS: CALCIUM 8.8 mg/dL (8.5-10.1)
[2022-03-28 07:50] LABS: CREATININE 0.9 mg/dL (0.55-1.3)
[2022-03-28] MEDS ORDERED: HEPARIN NA (PORCINE) 5,000 UNITS/ML 1ML VIAL ONE (09:32)
[2022-03-28] MEDS ORDERED: ASPIRIN 81 MG CHEWABLE TABLETS ONE (09:32)
[2022-03-28] MEDS ORDERED: HEPARIN NA (PORCINE) 5,000 UNITS/ML 1ML VIAL SQ SCH (10:00)
[2022-03-28] MEDS ORDERED: ASPIRIN 81 MG CHEWABLE TABLETS PO SCH (10:00)
[2022-03-28] MEDS ORDERED: ATORVASTATIN CA 10 MG TABLET (FP) PO SCH (22:00)
== END 2022-03-28 10:59 | disposition home or self-care (01) ==
LOC: JER 12:17 → JERBED 16:58
PROVIDERS: ADMIT Internal Medicine; ATTEND Internal Medicine
PROC: 3E033NZ Introduction of Analgesics, Hypnotics, Sedatives into Peripheral Vein, Percutaneous Approach (ICD-10-PCS; principal; 2022-03-27)
DX: R07.9 Chest pain, unspecified (principal); F41.8 Other specified anxiety disorders; I10 Essential (primary) hypertension; E78.5 Hyperlipidemia, unspecified; E66.01 Morbid (severe) obesity due to excess calories; Z68.32 Body mass index [BMI] 32.0-32.9, adult; F17.210 Nicotine dependence, cigarettes, uncomplicated
CPT/HCPCS: 0241U-QW; 36415; 71046-TC-FY; 80048; 80053; 80061; 83690; 83735; 83880; 84443; 84484; 85025; 85610; 85730; 93005; 93010; 96374; 99285-25; G0378